=== PATIENT | female | born 1995 | race Asian ===

== ENCOUNTER 2024-12-06 11:04 | Outpatient (AMB) | payer OTHER, SELFPAY ==
--- NOTE | 2024-12-06 11:05 | MHC.PC.OV ---
Vital Signs 12/06/24 11:11 Height 5 ft 1 in Weight 144 lb 6 oz BMI 27.3 BP 118/66 Blood Pressure Location Rt brachial Position Sitting Respiration 12 Pulse 100 Pulse Source Pulse Oximeter Temp 96.9 F Temp Source Oral Pulse Oximetry (%) 100 Oxygen Delivery Method Room Air Intake Visit Reasons: Est. 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 - Amenorrhea persisting since September 02, with the last menstrual cycle recorded then. - Previous irregular periods noted after marriage and [place] the [place] - Multiple negative tests confirm non-. Urgent care visit 12/01/24 [place] reviewed, negative POCT preg test. She has never had a pap. - Increased stress associated with lifestyle changes and adaptation to a colder climate. - Experienced intermittent irregular periods since starting gym activities in October. Past Surgical History - No surgical history. Family History - Diabetes and cardiovascular disease in father. - Thyroid disorder in mother. Social History - and relocated to the [place] from [place] after getting last year. - Currently unemployed. - Engages in regular exercise, attending the gym almost daily. - Reports past use of cannabis edibles (termed candy ). Health Maintenance - Declined Tdap and flu vaccines today. - Referred for women's health evaluation to address amenorrhea. - Recommendation for thyroid function testing and vitamin D screening for hormone and vitamin status evaluation. - Pap smear and cancer screening recommended. Review of Systems - Constitutional: Denies anxiety and depression. - Eyes: Vision reported as normal, no glasses worn. - Genitourinary: Reports amenorrhea since September 02. - Neurological: No reported neurological symptoms. Physical Exam General: Well developed, well nourished, in no acute distress. Appears stated age. Head: Normocephalic, atraumatic. Eyes: Pupils are equal, round and reactive to light and accommodation. Conjunctivae are clear. Vision grossly normal. Ears: TMs clear AU, EACS WNL Nose: Patent, without discharge. Neck: Supple, no adenopathy or thyromegaly. Breast: Edu on SBE Lungs: Clear to auscultation bilaterally. No rales, rhonchi or wheeze noted. Good air flow in all grewal. Heart: Regular rate and rhythm. No murmurs, click, rubs or gallops are noted. : Deferred. Reviewed recommendations for routine SUPERVISOR SHUTTLE PREPARATION Pulses: Peripheral pulses are equal and palpable bilaterally. Extremities: No clubbing, cyanosis nor edema is noted. Neurologic: Gait and station normal. Cranial Nerves 2-12 intact. Motor strength grossly symmetrical and intact. No sensory loss. Balance normal. Skin: No rashes, ulcers, or lesions noted. Turgor is good. Skin color is good. Hair and nails are without abnormalities. Psych: Normal eye contact, affect and mood appropriate, and normal interactions. Patient is alert and appropriate to context. No anxiety or depression noted. Results - Labs ordered include kidney function, liver function, blood glucose, vitamin D, vitamin B12, thyroid function, and a urine test. Discussion Notes I discussed the patient's amenorrhea since August and the negative tests confirming non-. Given her family history of thyroid disorder, I'll order a thyroid function test among other labs to explore potential causes of amenorrhea. I referred her to a women's health specialist to further evaluate her menstrual irregularities and discuss potential screening for cancers. I also recommended getting a Pap smear. The patient agreed to use our phoenix to track lab results and appointments. Assessment and Plan 29-year-old female with a family history of thyroid disorder presenting for wellness exam with amenorrhea. Regular menstruation ceased in August, correlating with lifestyle changes. Negative tests rule out . Family's thyroid disorder and stress suggest need for comprehensive lab assessments, including thyroid function and women's health evaluation to diagnose amenorrhea causes. 1. Amenorrhea Amenorrhea noted since last August with confirmed negative status. Assess thyroid function with interdisciplinary referral to women's health specialist for further examination and screening. Lab work ordered to evaluate hormonal imbalances or other underlying conditions including vitamin deficiencies. 2. Potential Thyroid Dysfunction Considering familial thyroid disorder history, thyroid function testing is planned to identify any dysfunction potentially linked to amenorrhea. Consent was obtained for testing. Patient Instructions - Follow up with women's health specialist for further evaluation of amenorrhea. - Schedule and complete all recommended lab tests, including thyroid, vitamin D, and B12 levels. - Monitor for any changes in menstrual cycle and report as advised. - Sign up for the phoenix for tracking lab results and communicating with the office for appointments and questions. Consent After discussing the patient's history, test results, and family background, I recommended thyroid function testing alongside other labs to elucidate the cause of amenorrhea, with emphasis on the family history of thyroid disorder. Consent was obtained from the patient, who agreed to pursue these diagnostic measures. Additional consent is obtained to use digital tracking of diagnostic outcomes via the phoenix. Patient was informed and verbally consented to the use of an ambient scribe for clinic note documentation during this visit. RTO 1 year CPE, sooner PRN [facility] Medical History (Updated 12/06/24 @ 11:48 by Kavya Schilling [facility]) No pertinent past medical history Surgical History (Updated 12/06/24 @ 11:11 by Castro Whitehead MA) No pertinent past surgical history Family History (Updated 12/06/24 @ 11:11 by Castro Whitehead MA) Father Diabetes Cardiovascular disease Mother Thyroid disorder Social History (Updated 12/06/24 @ 11:10 by Castro Whitehead MA) Household Members: Spouse Both parents involved: No Caregiver staying overnight: No Housing: Condominium Are you a primary lpn care manager to a significant other at home: No Do you presently have visiting nurse or other home services: No 75 years or older and lives alone: No Alcohol intake: never Patient Tobacco Use Status: Never used Tobacco e-Cigarette/Vaping Use: Never Used Second Hand Smoke Exposure: No Current occupational status: unemployed Cognitive needs: No Hearing needs: No Vision needs: No Questionnaire PHQ-9 Over the last 2 weeks, how often have you been bothered by any of the following problems? 1. Little interest or pleasure in doing things: not at all 2. Feeling down, depressed, or hopeless: not at all 3. Trouble falling or staying asleep, or sleeping too much: not at all 4. Feeling tired or having little energy: not at all 5. Poor appetite or overeating: not at all 6. Feeling bad about yourself - or that you are a failure or have let yourself or your family down: not at all 7. Trouble concentrating on things, such as reading the newspaper or watching television: not at all 8. Moving or speaking so slowly that other people could have noticed. Or the opposite - being so fidgety or restless that you have been moving around a lot more than usual: not at all 9. Thoughts that you would be better off or of hurting yourself in some way: not at all Total score: 0 Depression Screening Interpretation: Negative Depression Screening Done: Yes 11978 - PHQ-9 Billing: Yes Source: Developed by Drs. Tyler Berman, Dulce Purvis, Jonatan Anderson and colleagues, with an educational aileen from [employer]. Thrive Questionnaire Date Thrive assessed: 12/06/24 I am a: Patient What is your living situation today?: I have a steady place to live Within the past 12 months, did the food you bought not last and you didn't have the money to get more?: I choose not to answer this question Within the past 12 months, did you worry whether your food would run out before you got money to buy more?: I choose not to answer this question Do you have trouble paying for medicines?: No Do you have trouble getting transportation to medical appointments?: No Do you have trouble paying your heating and electricity bill?: No Do you have trouble taking care of your child, family member or friend?: No Do you have trouble with day-to-day activities such as bathing, preparing meals, shopping, managing finances, etc.?: No Are you currently unemployed and looking for a job?: No Are you interested in more education?: No Please select the resources that you would like help with: None Currently or been in a relationship where the following occur: I choose not to answer THRIVE Score: 0 AUDIT C Alcohol Use Questionnaire (AUDIT-C) 1. How often do you have a drink containing alcohol?: Never 3. How often do you have six or more drinks on one occasion?: Never Total Score: 0 Score Reviewed/Action Taken: Yes NOEMY-7 AMB Questionnaire NEOMY-7 Date NOEMY - 7 assessed: 12/06/24 Feeling nervous, anxious, or on edge: 0 = Not at all Not being able to stop or control worryin = Not at all Worrying too much about different things: 0 = Not at all Trouble relaxin = Not at all Being so restless that it is hard to sit still: 0 = Not at all Becoming easily annoyed or irritable: 0 = Not at all Feeling afraid as if something awful might happen: 0 = Not at all Total NOEMY-7 score (0-4 normal; 5-9 mild; 10-14 moderate; 15-21 severe): 0 Source: Developed by Drs. Tyler Berman, Dulce Purvis, Jonatan Anderson and colleagues, with an educational aileen from [employer]. NOEMY-7 Assessment Billing NOEMY-7 Assessment Tool: NOEMY-7 Assessment 46371 Physical exam (Primary Care) Vital Signs: Last Vital Signs Temp 96.9 F 12/06/24 11:11 Pulse 100 12/06/24 11:11 Resp 12 12/06/24 11:11 BP 118/66 12/06/24 11:11 Pulse Ox 100 12/06/24 11:11 Oxygen Delivery Method Room Air 12/06/24 11:11 BMI result Body Mass Index 27.3 Tobacco/Smoking Status: Tobacco use Status Tobacco use date assessed 12/06/24 12/06/24 11:13 Patient Tobacco Use Status Never used Tobacco 12/06/24 11:13 e-Cigarette/Vaping Use Never Used 12/06/24 11:13 PHQ-9: PHQ-9 Score PHQ-9: Total score 0 12/06/24 11:29 Depression Screening Interpretation: Negative Thrive Assessment: Date of Thrive Assessment Date Thrive assessed 12/06/24 12/06/24 11:06 Currently or been in a relationship where the following occur: I choose not to answer Coding Level of Care Code New Pt Prev Care 18-39yr(61856 Diagnoses Encounter for general adult medical examination without abnormal findings Z00.00 Influenza vaccination declined Z28.21 Secondary amenorrhea N91.1 Tetanus, diphtheria, and acellular pertussis (Tdap) vaccination declined Z28.21 Cervical cancer screening Z12.4 Laboratory exam ordered as part of routine general medical examination Z00.00 Additional Codes NOEMY-7 Assessment Billing - NOEMY-7 Assessment Tool: NOEMY-7 Assessment 42880 ([id number]) PHQ-9 - 86890 - PHQ-9 Billing: Yes ([id number]) Assessment & Plan Assessment & Plan (1) Encounter for general adult medical examination without abnormal findings: Code(s): Z00.00 - Encounter for general adult medical examination without abnormal findings Category: Medical (2) Influenza vaccination declined: Code(s): Z28.21 - Immunization not carried out because of patient refusal Category: Medical (3) Secondary amenorrhea: Code(s): N91.1 - Secondary amenorrhea Category: Medical (4) Tetanus, diphtheria, and acellular pertussis (Tdap) vaccination declined: Code(s): Z28.21 - Immunization not carried out because of patient refusal Category: Medical (5) Cervical cancer screening: Code(s): Z12.4 - Encounter for screening for malignant neoplasm of cervix Category: Medical (6) Laboratory exam ordered as part of routine general medical examination: Code(s): Z00.00 - Encounter for general adult medical examination without abnormal findings Category: Medical Plan . Orders: Orders Comprehensive Met. Panel Today N91.1 - Secondary amenorrhea Vitamin D 25-OH Total Today N91.1 - Secondary amenorrhea Vitamin B12 and Folate Today N91.1 - Secondary amenorrhea UA CC w/rflx Micro + Cult Today N91.1 - Secondary amenorrhea Complete Blood Count no Diff Today N91.1 - Secondary amenorrhea Hemoglobin A1c Today N91.1 - Secondary amenorrhea TSH reflex Free T4 Today N91.1 - Secondary amenorrhea LDL Cholesterol Direct Today N91.1 - Secondary amenorrhea Microalbumin, Random (w Creat) Today N91.1 - Secondary amenorrhea Referrals SENIOR HUMAN RESOURCES REPRESENTATIVE Referral N91.1 - Secondary amenorrhea, Z12.4 - Encounter for screening for malignant neoplasm of cervix Patient Instructions: Health screenings for women You should visit your health care provider from time to time, even if you are healthy. The purpose of these visits is to: Screen for medical issues Assess your risk for future medical problems Encourage a healthy lifestyle Update vaccinations and other preventive care services Help you get to know your provider in case of an illness Information Even if you feel fine, you should still see your provider for regular checkups. These visits can help you avoid problems in the future. For example, the only way to find out if you have high blood pressure is to have it checked regularly. High blood sugar and high cholesterol levels also may not have any symptoms in the early stages. A simple blood test can check for these conditions. There are specific times when you should see your provider or receive specific health screenings. The [place] Preventive Services Task Force publishes a list of recommended screenings. Below are screening guidelines for women ages 18 to 39. BLOOD PRESSURE SCREENING Your blood pressure should be checked at least once every 3 to 5 years if: Your blood pressure is in the normal range (top number less than 120 mm Hg and bottom number less than 80 mm Hg) You don't have risk factors for high blood pressure Ask your provider if you need your blood pressure checked more often if: The top number is 120 to 129 mm Hg or the bottom number is 70 to 79 mm Hg You have diabetes, heart disease, kidney problems, are overweight, or have certain other health conditions You have a first-degree relative with high blood pressure You are Black You had high blood pressure during a If the top number is 130 mm Hg or greater or the bottom number is 80 mm Hg or greater, this is considered stage 1 hypertension. Schedule an appointment with your provider to learn how you can reduce your blood pressure. Watch for blood pressure screenings in your area. Ask your provider if you can stop in to have your blood pressure checked. BREAST CANCER SCREENING Experts do not agree about the benefits of breast self-exams in finding breast cancer or saving lives. Talk to your provider about what is best for you. A screening mammogram is not recommended for most women under age 40. Your provider may discuss and recommend mammograms, MRI scans, or ultrasounds if you have an increased risk for breast cancer, such as: A mother or sister who had breast cancer at a young age (most often starting screening earlier than the age the close relative was diagnosed) You carry a high-risk genetic marker CERVICAL CANCER SCREENING Cervical cancer screening should start at age 21 years unless your provider advises otherwise. After the first test: Women ages 21 through 29 should have a Pap test every 3 years. Exoprts do not agree on whether HPV testing is recommended for this age group. Women ages 30 through 65 should be screened with either a Pap test every 3 years or the HPV test every 5 years or both tests every 5 years (called cotesting ). Women who have been treated for precancer (cervical dysplasia) should continue to have Pap tests for 20 years after treatment or until age 65, whichever is longer. If you have had your uterus and cervix removed (total hysterectomy), and you have not been diagnosed with cervical cancer or precancer (high grade cervical neoplasia), you do not need cervical cancer screening. CHOLESTEROL SCREENING Cholesterol screening should begin at: Age 45 for women with no known risk factors for coronary heart disease Age 20 for women with known risk factors for coronary heart disease Repeat cholesterol screening should take place: Every 5 years for women with normal cholesterol levels More often if changes occur in lifestyle (including weight gain and diet) More often if you have diabetes, heart disease, kidney problems, or certain other conditions DIABETES SCREENING You should be screened for diabetes starting at age 35 and then repeated every 3 years if you have no risk factors for diabetes. Screening may need to start earlier and be repeated more often if you have other risk factors for diabetes, such as: You have a first degree relative with diabetes. You are overweight or have obesity. You have high blood pressure, prediabetes, or a history of heart disease. Screening for diabetes should be done if you are planning to become and you are overweight and have other risk factors such as high blood pressure. DENTAL EXAM Go to the dentist once or twice every year for an exam and cleaning. Your dentist will evaluate if you need more frequent visits. EYE EXAM Have an eye exam every 5 to 10 years before age 40. If you have vision problems, have an eye exam every 2 years or more often if recommended by your provider. You should have an eye exam that includes an examination of your retina (back of your eye) at least every year if you have diabetes. IMMUNIZATIONS Commonly needed vaccines include: Flu shot: get one every year. COVID-19 vaccine: ask your provider what is best for you. Tetanus-diphtheria and acellular pertussis (Tdap) vaccine: have one at or after age 19 as one of your tetanus-diphtheria vaccines if you did not receive it as an adolescent. Tetanus-diphtheria: have a booster (or Tdap) every 10 years. Varicella vaccine: receive 2 doses if you never had chickenpox or the varicella vaccine. Hepatitis B vaccine: receive 2, 3, or 4 doses, depending on your exact circumstances. Measles, mumps, and rubella (MMR) vaccine: receive 1 to 2 doses if you are not already immune to MMR. Your provider can tell you if you are immune. Ask your provider about the human papillomavirus (HPV) vaccine if: You have not received the HPV vaccine in the past You have not completed the full vaccine series (you should catch up on this shot) Ask your provider if you should receive other immunizations if you have certain health problems that increase your risk for some diseases such as pneumonia. INFECTIOUS DISEASE SCREENING Women who are sexually active should be screened for chlamydia and gonorrhea up until age 25. Women 25 years and older should be screened for chlamydia and gonorrhea if at high risk. Screening for hepatitis C: All adults ages 18 to 79 should get a one-time test for hepatitis C. people should be screened at every . Screening for human immunodeficiency virus (HIV): All people ages 15 to 65 should get a one-time test for HIV. Depending on your lifestyle and medical history, you may also need to be screened for infections such as syphilis and HIV, as well as other infections. PHYSICAL EXAM All adults should visit their provider from time to time, even if they are healthy. The purpose of these visits is to: Screen for disease Assess your risk of future medical problems Encourage a healthy lifestyle Update your vaccinations and other preventive care services Maintain a relationship with a provider in case of an illness Your height, weight, and BMI should be checked at every exam. During your exam, your provider may ask you about: Depression and anxiety Diet and exercise Alcohol and tobacco use Safety issues, such as using seat belts, smoke detectors, and intimate partner violence Your medicines and risk for interactions SKIN SELF-EXAM Your provider may check your skin for signs of skin cancer, especially if you're at high risk, such as if you: Have had skin cancer before Have close relatives with skin cancer Have a weakened immune system OTHER SCREENING Talk with your provider about colon cancer screening if you have a strong family history of colon cancer or polyps, or if you have had inflammatory bowel disease or polyps yourself. Routine bone density screening of women under 40 is not recommended. Walk-In Care (Urgent Care): We Make it Easy Walk-in for urgent medical issues such as: ? Seasonal Allergies ? Insect Bites ? Cough ? Diarrhea ? Acute Asthma Attacks ? Back, Knee or Joint Pain ? Ear Infection ? Fever without a Rash ? Headaches ? Nausea ? [place], Rash or Skin Irritation ? Sore Throat ? Sports Physicals ? Vomiting Most insurances are accepted. Patients do not need to be part of the [facility] to seek care at the walk-in clinic. Locations [address] [facility] [place] [address] ? [phone] [facility]In Care in [place] provides services to ages 18 and over. Open Monday-Monday: 8 a.m. to 5 p.m. and Monday: 9 a.m. to 3 p.m.* *Hours may vary due to staffing availability. To confirm Walk-In Care hours in [place], please call [phone]. [address] [place] [address] ? [phone] [facility] in [place] provides services to ages 12 and over. Open Monday-Monday: 8 a.m. to 5 p.m. Hours may vary due to staffing availability. To confirm Walk-In Care hours in [place], please call [phone]. LABORATORY SERVICES: [facility] Lab ? Primary Location [address] [place] [address] Monday through Monday 6:00 AM ? 5:00 PM Monday 7:00 AM ? 11:00 AM* [phone] The [facility] Lab is centrally located near the front entrance of the [facility] for easy outpatient access. Convenient parking is provided for outpatients. *Hours may vary due to staffing availability. To confirm Laboratory hours for any location, please call [phone]. Offsite Location For your convenience, we offer offsite laboratory draw stations at the following locations: [address] [place] [address] ? [facility] [address], [address] Monday through Monday 7:30 AM ? 1:00 PM* [phone] *Hours may vary due to staffing availability. To confirm Laboratory hours for any location, please call [phone]. [place] ? [address] Monday through Monday 6:00 AM ? 3:30 PM* Monday 6:30 AM ? 3 PM* [phone] *Hours may vary due to staffing availability. To confirm Laboratory hours for any location, please call [phone]. [address] [facility] Monday through Monday 7:30 AM ? 4:00 PM* [phone] *Hours may vary due to staffing availability. To confirm Laboratory hours for any location, please call [phone]. [address] [facility] Monday through 9:00 AM ? 4:00 PM* *Hours may vary due to staffing availability. To confirm Laboratory hours for any location, please call [phone]. Appointments are not necessary. Walk-ins are welcome. Like all the departments throughout the [facility], our Lab undergoes frequent reviews to ensure the quality and accuracy of test results, and our staff takes special pride in its status as a nationally accredited facility. Patient Portal: ONE PATIENT. ONE RECORD. BETTER CARE. [facility] has a fully integrated, cutting-edge mobile electronic health information system that has revolutionized the way we care for our patients and manage our organization. This system improves communication and coordination enabling us to provide safe, higher-quality care, and an overall positive experience for staff and patients. Our first priority, as always, is to deliver the highest quality care possible. The system is running in the background supporting that priority. This portal is for all [facility] and [facility] services and practices. If you are experiencing any technical difficulties with enrolling or logging into the Patient Portal please complete the [facility] Patient Portal Technical Support Form. [facility] and [facility] now offers a new secure on-line interactive tool for patients to review their health information ? ?Patient Portal. This interactive web portal will enable patients and their families to take an active role in their care by providing easy, secure access to their health information via the internet. The Patient Portal provides patients with instant access to their health information, including laboratory results, medications, allergies, demographic information, visit history, and more. In addition to managing their own care, parents and health care proxies with authorized consent will appreciate the ability to access the records of those individuals for whom they provide care. Please note: if you wish to gain access (Proxy) to another patient?s portal, you will be required to come to the Medical Records Department in person at [facility]. Both the patient giving proxy access and the proxy will need to provide photo identification and complete the appropriate authorization. The Patient Portal also allows track their appointments online. The [facility] Patient Portal also saves patients time by allowing them to submit updates to their demographic and contact information prior to their visits. Portal email notifications will also alert patients to any new activity on their portal, such as test results and new appointments. In order to initially enroll in the [facility] Patient Portal, you will need to enter some required information including the following: your [facility] Medical Record number your personal home email address name date of Please note: In order to enroll in the [facility] Patient Portal, we need to have your email address on file in your electronic medical record. ?The email address needs to be specific for one person (yourself) in order for your Portal enrollment to be successful. ?You can update your email address in person with our Registration staff when you are registering for a hospital visit. ?Otherwise, you will need to come to the Health Information Management (Medical Records) Department at [facility]. ?We are open from Monday ? Monday from 7:30 a.m. ? 4:30 p.m. ?You will be required to present a photo id. Once you have successfully enrolled in the Patient Portal, you will receive a one-time user id and password for the Portal, sent to your email address. ?This will allow you to log into the Patient Portal within 99 hrs and reset your own logon id and password, and define personal security questions. ?Once your permanent login and password have been set, you can log into the [facility] Patient Portal at any time via the blue button above or from the Portal Logon button on any page of the [facility] website. [facility] and [facility] encourage all of our patients to enroll in Patient Portal as it presents a valuable opportunity for patients and their families to actively participate in their care and stay healthy Welcome to [facility]. ?We look forward to working with you.
[2024-12-06 11:11] VITALS: BP 118/66; PULSE 100; RESP 12; TEMP 36.1; O2SAT 100; BMI 27.3
== END 2024-12-06 11:46 | disposition home or self-care (01) ==
PROVIDERS: PCP Nurse Practitioner Family; Visit Provider Nurse Practitioner Family
DX: Z00.00 Encounter for general adult medical examination without abnormal findings (principal); Z28.21 Immunization not carried out because of patient refusal; N91.1 Secondary amenorrhea; Z12.4 Encounter for screening for malignant neoplasm of cervix

== ENCOUNTER → 2024-12-06 11:04 | Outpatient (BNVA) | payer OTHER, SELFPAY | PROVIDERS: PCP Nurse Practitioner Family; Visit Provider Nurse Practitioner Family | DX: Z00.00 Encounter for general adult medical examination without abnormal findings (principal); N91.1 Secondary amenorrhea; Z28.21 Immunization not carried out because of patient refusal | CPT/HCPCS: 96127 ==

== ENCOUNTER 2024-12-06 11:49 | Outpatient (REF) | payer OTHER, SELFPAY ==
[2024-12-06 14:06] LABS: Appearance Urine Clear; Color Urine Straw; Glucose Urine UA Negative (Negative); Leukocyte Esterase Urine Negative (Negative); Nitrite Urine Negative (Negative); PH 6.5 (5.0-9.0); UMIC TRIGGER UACC YES; Urine Blood Trace (Negative); Urine Ketones Negative (Negative); Urine Protein Negative (Neg-Trace)
[2024-12-06 14:24] LABS: Hematocrit 36.2 % (37.0-47.0); Mean Corpuscular HGB Conc 33.1 g/dl (31.0-35.0); Mean Corpuscular Hemoglobin 29.1 pg (27.0-33.0); Mean Corpuscular Volume 87.9 fL (80.0-98.0); Mean Platelet Volume 10.7 fL (9.4-12.3); Platelet Count 382 X10*3/uL (160-400); Red Blood Count 4.12 X10*6/uL (4.20-5.50); Red Cell Distribution Width 12.5 % (11.0-16.0); White Blood Count 9.5 X10*3/uL (4.8-10.8)
[2024-12-06 14:26] LABS: Bacteria Urine None Seen (None Seen); Hyaline Casts Urine 0-2 /LPF (0-2); RBC Urine 0-2 /HPF (0-2); Squamous Epithelial Cell Urine 0-2 /HPF (0-2); WBC Urine 0-5 /HPF (0-5)
[2024-12-06 14:39] LABS: Estimated Average Glucose 100 mg/dL; Hemoglobin A1C 103.7527 umol/L; Hemoglobin A1c % 5.1 % (<6.0); Total Hemoglobin (HGBA1C) 3171.6974 umol/L
[2024-12-06 14:42] LABS: Alanine Aminotransferase 27 U/L (0-31); Albumin Level 4.3 g/dL (3.5-5.0); Alkaline Phosphatase 92 U/L (39-117); Anion Gap 10 (12-20); Aspartate Amino Transferase 22 U/L (5-31); Bilirubin Total 0.5 mg/dL (0.0-1.0); Blood Urea Nitrogen 8 mg/dL (9-16); Carbon Dioxide 24 mmol/L (22-29); Chloride 107 mmol/L (96-108); Estimated Glomerular Filt Rate > 60; Glucose Random 88 mg/dL (60-115); Potassium 3.9 mmol/L (3.3-5.1); Sodium 137 mmol/L (135-145); Total Protein 7.3 g/dL (6.5-8.0)
[2024-12-06 14:57] LABS: Creatinine Urine 50.71 mg/dL; Microalbumin Urine < 5.0 mg/L
[2024-12-06 15:02] LABS: TSH reflex Free T4 2.45 uIU/mL (0.32-4.0); Vitamin D 25-OH Total 10.9 ng/mL (>30)
[2024-12-06 15:14] LABS: Folate 7.8 ng/mL (> or = 4.0); Vitamin B12 < 148 pg/mL (200-900)
[2024-12-08 02:58] LABS: LDL Cholesterol Direct 99 mg/dL (<100)
== END 2024-12-06 11:50 | disposition home or self-care (01) ==
LOC: HO.WFDLDS 11:49
PROVIDERS: Visit Provider Nurse Practitioner Family
DX: Z00.00 Encounter for general adult medical examination without abnormal findings (principal); N91.1 Secondary amenorrhea; Z13.1 Encounter for screening for diabetes mellitus
CPT/HCPCS: 36415; 80053; 81001; 81003; 82043; 82306; 82570; 82607; 82746; 83036; 83721; 84443; 85027

== ENCOUNTER 2025-02-25 13:03 | Outpatient (AMB) | payer OTHER, SELFPAY ==
--- NOTE | 2025-02-25 13:04 | MHC.OFFVIS ---
Vital Signs 02/25/25 13:11 Height 5 ft 1 in Weight 142 lb BMI 26.8 BP 124/72 Intake Visit Reasons: New patient Annual Intake Note: Per patient has never had a pap smear before. 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 She has never had a obgyn hospitalist physician exam before she moved here from [facility] when she got a little over year ago. She normally gets very regular periods but she did miss a period last January just after she had moved and then again in September and October she did not get a period she saw her new primary care provider Kavya Anguiano in November and she did get a period very soon after that. She started on some multivitamins and vitamin B12 then and she observed for herself that she was gaining weight and she was at her heaviest in January and she has started cutting out sugar and eating healthier and she has started losing some weight and feels better and healthier. 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 She and her are sexually active they sometimes use condoms and sometimes withdrawal they are not planning on getting any time soon but may in about 6 months. She lives in [place] She also is walking for exercise and they have been to the gym. [facility] Medical History No pertinent past medical history Surgical History No pertinent past surgical history Family History Father Diabetes Cardiovascular disease Mother Thyroid disorder Social History (Updated 02/25/25 @ 13:08 by Hillary Vernon MA) Household Members: Spouse Both parents involved: No Caregiver staying overnight: No Housing: Condominium Are you a primary emergency care attendant to a significant other at home: No Do you presently have visiting nurse or other home services: No 75 years or older and lives alone: No Alcohol intake: never Patient Tobacco Use Status: Never used Tobacco e-Cigarette/Vaping Use: Never Used Second Hand Smoke Exposure: No Current occupational status: employed and unemployed 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 Cognitive needs: No Hearing needs: No Vision needs: No Female Reproductive History Menstrual Age of Menarche: 13 Duration of menses: 3-5 days Date of last menstrual period: 02/06/25 control method: none Total pregnancies: 0 Physical Exam Vital Signs: Last Vital Signs BP 124/72 02/25/25 13:11 BMI result Body Mass Index 26.8 Const General: healthy appearing, comfortable, no acute distress, well developed and alert Nutritional Appearance: average body habitus Orientation/consciousness: patient oriented x3 Limitations: no limitations HEENT Head: Yes normocephalic Neck Neck: Yes normal visual inspection Chest Chest palpation & inspection: normal inspection of the chest Breast/axilla inspection: normal inspection of the breasts and normal inspection of the axillae Breast/axilla palpation: normal palpation of the breasts and normal palpation of the axillae Resp Effort & Inspection: normal respiratory effort GI Inspection: Yes normal to inspection, No Abdominal wall edema and No distended Palpation (GI): Soft to palpation and nontender Other: External exam is within normal limits vagina is pink and moist cervix is nulliparous pink slightly reddish with ectropion. Normal scant whitish mucus present consistent with luteal phase. Cervix is long close thick mobile nontender uterus midposition mobile nontender adnexa nontender moderate tone with Kegel. General: Yes bladder normal to palpation External Female Exam: normal external appearance and normal appearance of the urethra Speculum Exam - Vagina: normal appearance of the vagina, normal palpation and normal vaginal discharge Speculum Exam - Cervix: normal appearance of the cervix, normal palpation and nontender Bimanual exam- vagina & uterus: normal bimanual exam, normal palpation, uterine size normal, bladder normal to palpation, consistency normal, normal palpation, uterine mobility normal, uterine shape normal, No Cervical tenderness present, non-tender and no cervical motion tenderness Bimanual Exam- Adnexa, other: normal adnexae, no masses, normal and No adnexal tenderness Neuro General: patient oriented x3 Assessment & Plan Assessment & Plan (1) Cervical cancer screening: Comment: 1st Pap done 02/25/2025. Code(s): Z12.4 - Encounter for screening for malignant neoplasm of cervix Category: Medical (2) Secondary amenorrhea: Comment: Resolved. She missed 1 menses when she moved here from [place], and she missed menses in September and October of 2024, normal cycles have resumed. Code(s): N91.1 - Secondary amenorrhea Category: Medical (3) Uses condoms as primary control method: Code(s): Z78.9 - Other specified health status Category: Social Hx (4) Patient desires : Comment: in future-- perhaps 6 months. rev pre health and planning etc. Code(s): Z31.9 - Encounter for procreative management, unspecified Category: Medical Plan -----Discussed in this visit the following: healthy balanced diet, regular and consistent exercise, getting recommended health screens, doing the best she can for her particular health concerns, kegel exercises, pap smear screening and followup recommendations, mammography screening and SBE, normal changes in cycles in her life stage--- .----I reviewed available options for Control Methods and their associated side effect profiles. In particular, we discussed the method most of interest to her.-she says they use condoms sometimes, and withdrawal at other times. they dont want to get right now, but maybe in about 6 months. i reviewed her health and optimal health in planning for a . she is taking mutivits, and also vit b-12, and she says she is not a vegetarian. Reviewed signs and symptoms of ovulation for her to be aware of which she sort of is aware of. Reviewed her anatomy and her normal cycles. Also reviewed the interactions between weight and also stress on her cycles reviewed her thyroid level which is within normal range though with a higher range of normal. Applauded her attention to trying to eat healthier and cut out sugar and be active and this will all help her be as healthy as she can be. Also reviewed sites that are available for full care and delivery services and entire [facility] including [facility] and [facility]. Reviewed that we can provide care for healthy pregnancies, however for someone having their 1st baby there were very many questions and issues to address and a first-time mother would best be served receiving all of the care from the start where she is going to deliver to ensure full continuity of care. Today we did Pap smear as well as testing for gonorrhea chlamydia trichomoniasis as well as bacterial vaginosis and yeast. Discussed with the latter 2 are parts of the normal christine in the vagina and only need to be treated if she is symptomatic and reassured that everything very healthy today. Coding Level of Care Code New Pt Prev Care [id number]([id number] Diagnoses Cervical cancer screening Z12.4 Secondary amenorrhea N91.1 Uses condoms as primary control method Z78.9 Patient desires Z31.9
[2025-02-25 13:11] VITALS: BP 124/72; BMI 26.8
== END 2025-02-25 14:35 | disposition home or self-care (01) ==
LOC: HO.HWSM 13:03
PROVIDERS: PCP Nurse Practitioner Family; Visit Provider Advanced Practice Midwife
DX: Z01.419 Encounter for gynecological examination (general) (routine) without abnormal findings (principal); N91.1 Secondary amenorrhea; Z31.9 Encounter for procreative management, unspecified
CPT/HCPCS: 99385; 99459

== ENCOUNTER 2025-02-25 13:03 | Outpatient (REF) | payer OTHER, SELFPAY ==
[2025-02-26 19:11] LABS: Bacterial Vaginosis PCR NEGATIVE (Negative); Candida Group PCR NOT DETECTED (Not Detect); Candida glab krusei PCR DETECTED (Not Detect); Trichomonas vaginalis PCR NOT DETECTED (Not Detect)
[2025-02-26 20:21] LABS: CT PCR NOT DETECTED (Not Detect.); NG PCR NOT DETECTED (Not Detect.)
[2025-03-05 10:28] LABS: HPV Genotype 16 Negative (Negative); HPV Genotype 18 Negative (Negative); HPV High Risk Negative (Negative)
== END 2025-02-25 13:04 | disposition home or self-care (01) ==
LOC: HO.LNP 13:03
PROVIDERS: PCP Nurse Practitioner Family; Visit Provider Advanced Practice Midwife
DX: Z01.419 Encounter for gynecological examination (general) (routine) without abnormal findings (principal); Z78.9 Other specified health status; N91.1 Secondary amenorrhea
CPT/HCPCS: 81515; 87491; 87591; 87626; 88175